=== PATIENT | female | born 1960 | race Caucasian/White ===

== ENCOUNTER 2018-02-01 23:46 | Emergency (ER) | payer OTHER, SELFPAY ==
[2018-02-01 23:47] VITALS: BP 122/60; PULSE 100; RESP 18; TEMP 36.3; O2SAT 91; BMI 33.0
--- NOTE | 2018-02-01 23:51 | ED.RN ---
RN CALLED FOR EKG, PULLED OLD EKG'S FOR
[2018-02-01 23:55] VITALS: BP 133/81; PULSE 90; RESP 23; O2SAT 94
[2018-02-02 00:15] LABS: Absolute Lymphocyte Count 2.26 X10^3/ul (0.83-4.51); Absolute Neutrophil Count 5.6 X10^3/uL (2.0-7.7); Basophil# 0.03 X10^3/uL; Basophil% 0.3 % (0-1); Eosinophil# 0.24 X10^3/uL; Eosinophils% 2.7 % (0-5); Hematocrit 39.1 % (37-47); Hemoglobin 12.9 g/dl (12.0-15.0); Lymphocyte # 2.26 X10^3/ul (4.0); Lymphocyte % 25.3 % (19-41); Mean Corpuscular Hgb 31.5 pg (27.0-32.0); Mean Corpuscular Volume 95.4 fL (81-99); Mean Platelet Vol. 9.4 fl (6.2-12.0); Monocyte# 0.82 X10^3/uL; Monocyte% 9.2 % (0-10); Neutrophil # 5.56 X10^3/uL (2.7-7.7); Neutrophil % 62.3 % (47-70); Platelet Count 311 K/mm3 (150-450); RBC Distribution Width CV 13.5 % (11.6-14.6); RBC Distribution Width SD 45.3 fl (35.1-43.9); White Blood Count 8.9 K/mm3 (4.4-11.0)
[2018-02-02 00:18] LABS: POSITIVE COUNT NO; POSITIVE DIFFERENTIAL NO; POSITIVE MORPHOLOGY NO
--- NOTE | 2018-02-02 00:32 | ED.VISSUMM ---
- ER Visit Summary Date of Service: 02/02/18 Chief Complaint: Chest pain History of Present Illness: The patient is a 57 F history of reflux and hiatal hernia. Patient states she is a negative stress test 2 years ago. Has never had a heart cath. Has no history of cardiac disease nor any significant family history of cardiac disease. She did smoke but quit 2 years ago. No history of prior DVT or PE. No leg pain or swelling. No hemoptysis. No pleuritic nature discomfort. Patient states that she is having heartburn since 2 PM after having lunch. It has been constant for more than the last 10 hours. She try to treated home with her reflux medications both Protonix and ranitidine and said really the symptoms initially had been getting better but now she is better currently. She really denies any significant exertional chest pain or exertional dyspnea. She denies nausea, vomiting or melena. Physical Examination: Well-appearing middle-age female. Vital signs are stable afebrile. Pulse ox 94% on room air no hypoxia. HEENT exam unremarkable. Neck nontender. Lungs clear to auscultation bilaterally. Heart regular rhythm no murmur. Abdomen soft nontender. She is moving all 4 extremities. She is equal symmetrical radial pulses. Calves are nontender without edema or cords. Neurologically she is awake and alert there are no focal motor deficits. Test Results: EKG is a sinus rhythm rate 85 with no acute signs of LA or ischemia and unchanged from prior EKG from December 2015. CBC normal. BMP unremarkable. Troponin normal. Portable chest x-ray normal also read both by myself the radiologist. Normal cardiac silhouette and mediastinum. Emergency Department Course and Treatment: Clinically and historically this does appear to be reflux and noncardiac chest pain. She will be treated with p.o. Pepcid and GI cocktail. Undergo a cardiac workup. Treatment Plan: Repeat exam at 0156 AM patient is doing very well feels improved after GI cocktail and Pepcid. She and her are both comfortable being discharged to home. Disposition: Discharge Impression: Acute chest pain secondary to reflux This note was generated with [employer] dictation software. It may contain incorrect words, spelling, and punctuation that were not noted in review of the chart prior to signing ED Disposition - Plan for ED Patient: Chief Complaint: Chest Pain Referrals: Waldo Farley DO [Primary Care Provider] -
[2018-02-02 00:38] LABS: Anion Gap 5 (5-15); BUN 16 mg/dL (7-18); BUN/Creat Ratio 19.5 RATIO (10-20); Calcium,Total 8.8 mg/dL (8.5-10.1); Chloride 103 mmol/L (98-107); Creatinine, Serum 0.82 mg/dL (0.55-1.02); EST Glomerular Filtration Rate 76 mL/min (>60); Est Glom Filt Rate - Afr Amer 92 mL/min (>60); Estimated Creatinine Clearance 70.86 ml/min; Glucose 98 mg/dL (74-106); Potassium 4.1 mmol/L (3.5-5.1); Sodium Level 141 mmol/L (136-145)
[2018-02-02 00:46] VITALS: BP 107/67; PULSE 80; RESP 21; O2SAT 93
[2018-02-02 01:00] VITALS: BP 100/65; PULSE 83; RESP 15; O2SAT 95
[2018-02-02] MEDS: Famotidine 20 MG Tablet 40 MG PO (01:04)
[2018-02-02 01:06] VITALS: O2SAT 94
[2018-02-02] MEDS: Mag Hydrox/Al Hydrox/Simeth 30 ML UDC PO (01:06)
--- NOTE | 2018-02-02 02:01 | ED.DEP ---
ED Disposition - Plan for ED Patient: Disposition: Home or Assisted Living Chief Complaint: Chest Pain Instructions: ED GERD Referrals: Waldo Farley DO [Primary Care Provider] - As Needed Additional Instructions: Call return if feeling a lot worse. History, pain and workup were all consistent with this being reflux and noncardiac chest pain. Continue your current medications. Follow-up with your doctor as needed.
[2018-02-02 02:09] VITALS: BP 131/74; PULSE 82; RESP 22; O2SAT 98
--- NOTE | 2018-02-02 02:10 | ED.RN ---
THIS NURSE REVIEWED D/C INSTRUCTIONS WITH PT. PT VERBALIZED UNDERSTANDING OF INSTRUCTIONS. IV D/C. IV CATHETER INTACT. PT TOLERATED WELL. PT DENIES FURTHER NEEDS OR QUESTIONS AT THIS TIME. PT AMBULATES FROM ROOM ON OWN WITHOUT ASSISTANCE FROMHaim CIFUENTES
== END 2018-02-02 02:11 | disposition home or self-care (01) ==
PROVIDERS: Emergency Provider Emergency Medicine; Family Provider Family Medicine; PCP Family Medicine
DX: K21.9 Gastro-esophageal reflux disease without esophagitis (principal); K44.9 Diaphragmatic hernia without obstruction or gangrene; R07.9 Chest pain, unspecified; Z87.891 Personal history of nicotine dependence
CPT/HCPCS: 71045; 80048; 84484; 85025; 93005; 99285; A4216

== ENCOUNTER 2018-12-28 19:05 | Emergency (ER) | payer OTHER, SELFPAY ==
[2018-12-28 19:05] VITALS: BP 138/85; PULSE 110; RESP 18; TEMP 36.7; BMI 33.5
[2018-12-28 19:11] VITALS: BP 138/85; PULSE 110; RESP 18; TEMP 36.7
--- NOTE | 2018-12-28 19:19 | EKG12_ITS ---
Test Reason : CP Blood Pressure : / mmHG Vent. Rate : 093 BPM Atrial Rate : 093 BPM P-R Int : 140 ms QRS Dur : 078 ms QT Int : 340 ms P-R-T Axes : 078 061 037 degrees QTc Int : 422 ms Normal sinus rhythm Nonspecific ST abnormality Abnormal ECG Confirmed by JULISA AVALOS, KEL ([id number]), editor city EFRAIN NICHOLS ([id number]) on 12/30/2018 12:27:53 PM Referred By: SERA Confirmed By:DIAMOND EGAN MD
--- NOTE | 2018-12-28 19:20 | RAD_ITS ---
STUDY: X-RAY CHEST REASON FOR EXAM: Female, 58 years old. Chest pain. TECHNIQUE: Single AP portable view of the chest. COMPARISON: 02/02/2018. FINDINGS: The lungs are clear and expanded. There is no demonstrated pleural abnormality. Normal size heart. Normal mediastinum and harish. Normal visualized pulmonary arteries. Normal visualized aortic arch and descending thoracic aorta. Normal visualized thoracic spine. Normal visualized ribs, clavicles, and shoulders. There is no demonstrated abnormality of the visualized soft tissue structures of the upper abdomen. RAD/Chest 1 View (Portable) IMPRESSION: Normal x-ray examination of the chest. Electronically Signed: Yair Bettencourt MD at 19:36 EDT , Service support ,
[2018-12-28 19:38] LABS: Absolute Lymphocyte Count 2.15 X10^3/ul (0.83-4.51); Absolute Neutrophil Count 5.9 X10^3/uL (2.0-7.7); Basophil# 0.02 X10^3/uL; Basophil% 0.2 % (0-1); Eosinophil# 0.25 X10^3/uL; Eosinophils% 2.7 % (0-5); Hematocrit 41.9 % (37-47); Hemoglobin 13.8 g/dl (12.0-15.0); Lymphocyte # 2.15 X10^3/ul (4.0); Lymphocyte % 23.4 % (19-41); Mean Corp Hgb Conc 32.9 g/gl (32-36); Mean Corpuscular Hgb 31.2 pg (27.0-32.0); Mean Corpuscular Volume 94.6 fL (81-99); Mean Platelet Vol. 9.5 fl (6.2-12.0); Monocyte# 0.85 X10^3/uL; Monocyte% 9.3 % (0-10); Neutrophil # 5.89 X10^3/uL (2.7-7.7); Neutrophil % 64.3 % (47-70); Platelet Count 245 K/mm3 (150-450); RBC Distribution Width CV 13.7 % (11.6-14.6); RBC Distribution Width SD 47.2 fl (35.1-43.9); Red Blood Count 4.43 M/mm3 (4.2-5.4); White Blood Count 9.2 K/mm3 (4.4-11.0)
[2018-12-28 19:42] LABS: POSITIVE COUNT NO; POSITIVE DIFFERENTIAL NO; POSITIVE MORPHOLOGY NO
[2018-12-28 19:48] LABS: Anion Gap 7 (5-15); BUN 20 mg/dL (7-18); BUN/Creat Ratio 27.4 RATIO (10-20); Calcium,Total 8.9 mg/dL (8.5-10.1); Chloride 104 mmol/L (98-107); Creatinine, Serum 0.73 mg/dL (0.55-1.02); EST Glomerular Filtration Rate 87 mL/min (>60); Est Glom Filt Rate - Afr Amer 105 mL/min (>60); Estimated Creatinine Clearance 78.64 ml/min; Glucose 106 mg/dL (74-106); Potassium 4.1 mmol/L (3.5-5.1); Sodium Level 140 mmol/L (136-145)
[2018-12-28 19:56] LABS: Prothrombin Time (Protime)PT. 13.3 SECONDS (11.7-14.9)
--- NOTE | 2018-12-28 20:26 | ED.DCSUM_ITS ---
- ER Visit Summary Date of Service: 12/28/18 Chief Complaint: Bilateral arm and shoulder pain History of Present Illness: The patient is a 58 F past Sriram history of reflux. Prior negative nuclear stress test in 2016. Patient states for the last several days she has had left arm pain and right arm pain. No chest pain. No shortness of breath. No exertional symptoms. No diaphoresis. No leg swelling. No history of DVT or PE no cardiac history. This was not associated with exertion today. She says her shoulders and biceps are sore to the touch. Physical Examination: Middle-aged female no acute distress. Vital signs are stable. HEENT exam unremarkable. Neck nontender no lymphadenopathy. Lungs clear to all station bilaterally. Heart regular rhythm no murmur. Rate about 95. Chest wall nontender. Abdomen soft nontender. Normal bowel sounds no peritoneal signs. Extremities moves all 4. Calves nontender without edema or cords. Equal symmetrical radial pulses. 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 No muscular or extremity tenderness. Neurologically she is awake and alert. No focal deficits. Test Results: Chest x-ray showed normal cardiac silhouette mediastinum read both by myself and radiologist. EKG sinus rhythm no acute abnormality unchanged from prior EKG. CBC showed white count 9. Normal hemoglobin. BMP normal. PT/INR normal. Troponin normal. Emergency Department Course and Treatment: Repeat exam aware of all test results with the patient. My clinical suspicion is actually low for this being cardiac disease. Patient I discussed options for atypical arm pain and it really I do not have a strong suspicions as cardiac. She denied discussed admission for inpatient stress test versus outpatient stress test and primary care physician follow-up. She preferred to be discharged to home and did not want to be admitted. She knows to return if worse. Treatment Plan: Follow-up with her primary care physician. Return if feeling worse. Disposition: Discharge Impression: Atypical arm pain of uncertain etiology This note was generated with [employer] dictation software. It may contain incorrect words, spelling, and punctuation that were not noted in review of the chart prior to signing ED Disposition - Plan for ED Patient: Referrals: Waldo Farley DO [Primary Care Provider] -
--- NOTE | 2018-12-28 20:29 | ED.DEP ---
ED Disposition - Plan for ED Patient: Disposition: Home or Assisted Living Instructions: CHEST PAIN, Uncertain Cause Referrals: Waldo Farley DO [Primary Care Provider] - As soon as possible Additional Instructions: Motrin for pain. Return to ER if you are feeling worse, develop chest pain or shortness of breath. Follow-up your primary care physician and consider repeat outpatient stress test.
[2018-12-28 20:34] VITALS: BP 110/89; PULSE 81; RESP 14; O2SAT 97
== END 2018-12-28 20:38 | disposition home or self-care (01) ==
PROVIDERS: Emergency Provider Emergency Medicine; Family Provider Family Medicine; PCP Family Medicine
DX: M79.602 Pain in left arm (principal); M79.601 Pain in right arm; K21.9 Gastro-esophageal reflux disease without esophagitis; Z79.82 Long term (current) use of aspirin
CPT/HCPCS: 71045; 80048; 84484; 85025; 85610; 93005; 99285; A4216